=== PATIENT | male | born 1990 | race Two or more races ===

== ENCOUNTER 2025-01-20 13:44 | Emergency (ER) | payer OTHER ==
[~2025-01-20] VITALS: Ht 170.2 cm; Wt 83.0 kg
[2025-01-20] MEDS ORDERED: LIDOCAINE HCL 1% 10ML VIAL PERCUT ONE (14:45)
[2025-01-20] MEDS ORDERED: POVIDONE-IODINE 118 ML BOTT TOP ONE ×2 (14:45→15:06)
[2025-01-20] MEDS ORDERED: LIDOCAINE HCL 1% 10ML VIAL ONE (15:06)
[2025-01-20] MEDS ORDERED: MONDOXYNE NL100 MG PO (15:48)
== END 2025-01-20 17:02 | disposition home or self-care (01) ==
LOC: ER 13:44
DX: S61.411A Laceration without foreign body of right hand, initial encounter (principal); W25.XXXA Contact with sharp glass, initial encounter; Y93.89 Activity, other specified; Y92.89 Other specified places as the place of occurrence of the external cause; Y99.9 Unspecified external cause status; Z88.0 Allergy status to penicillin